=== PATIENT | male | born 1955 | race Caucasian/White ===

== ENCOUNTER 2016-12-25 06:59 | Emergency (ER) | payer MEDICARE ==
[~2016-12-25] VITALS: Ht 170.2 cm; Wt 70.0 kg
[2016-12-25 07:00] VITALS: BP 120/72
[2016-12-25] MEDS ORDERED: IBUPROFEN 200 MG TABLET ONE (07:20)
[2016-12-25] MEDS ORDERED: IBUPROFEN 200 MG TABLET PO ONE (07:30)
== END 2016-12-25 07:42 | disposition home or self-care (01) ==
LOC: ED 07:36
DX: M79.671 Pain in right foot (principal); F25.9 Schizoaffective disorder, unspecified
CPT/HCPCS: 99282

== ENCOUNTER 2017-01-08 09:51 | Emergency (ER) | payer MEDICARE ==
[~2017-01-08] VITALS: Ht 180.3 cm; Wt 72.0 kg
[2017-01-08 09:55] VITALS: BP 171/76
== END 2017-01-08 11:12 | disposition home or self-care (01) ==
LOC: ED 11:06
DX: F25.9 Schizoaffective disorder, unspecified (principal); M19.90 Unspecified osteoarthritis, unspecified site; Z59.0 Homelessness
CPT/HCPCS: 99283